=== PATIENT | female | born 1945 | race Caucasian/White ===

== ENCOUNTER 2023-05-31 06:06 | Day surgery (SDC) | payer MEDICARE ==
[2023-05-31] MEDS ORDERED: Midazolam 1 MG/ML 2 ML SDV ONE (06:13)
[2023-05-31] MEDS ORDERED: fentaNYL 100 MCG/2 ML SDV ONE (06:13)
[2023-05-31] MEDS ORDERED: Dextrose 5%-0.45% NaCl 1,000 ML IV SCH (06:30)
[2023-05-31] MEDS ORDERED: fentaNYL 100 MCG/2 ML SDV IV ONE ×3 (06:52→08:30)
[2023-05-31] MEDS ORDERED: Midazolam 1 MG/ML 2 ML SDV IV ONE ×5 (06:53→08:30)
[2023-05-31 08:07] VITALS: BP 132/88; PULSE 65
== END 2023-05-31 08:31 | disposition home or self-care (01) ==
LOC: DL.ENDO 06:06
PROVIDERS: ATTEND Internal Medicine Gastroenterology
DX: Z12.11 Encounter for screening for malignant neoplasm of colon (principal); D12.2 Benign neoplasm of ascending colon; D12.4 Benign neoplasm of descending colon; K57.30 Diverticulosis of large intestine without perforation or abscess without bleeding; K64.8 Other hemorrhoids; E78.5 Hyperlipidemia, unspecified
CPT/HCPCS: J2250; J3010; J7042